=== PATIENT | male | born 1995 | race Caucasian/White ===

== ENCOUNTER 2018-08-21 09:03 | Emergency (ER) | payer OTHER ==
[2018-08-21] MEDS ORDERED: HYDROCODONE/APAP 7.5/325 MG TAB ONE (09:26)
--- NOTE | 2018-08-21 09:55 | RAD REPORT ---
EXAM DESCRIPTION: RAD - Hand Right 3 View - 08/21/2018 9:24 am CLINICAL HISTORY: Hand pain, blunt force trauma third and fourth digits COMPARISON: None. FINDINGS: No fracture is identified. There is no dislocation or periosteal reaction noted. Soft tis minoo injury seen over the dorsal margin of the distal third and fourth digits. No foreign body. IMPRESSION: Distal third and fourth digit soft tissue injury with no acute right hand bone or joint finding.
--- NOTE | 2018-08-21 10:29 | ER ---
Nurse's Notes [facility] Name: Deni Mi Age: 22 yrs Sex: Male : 1995 Arrival Date: 08/21/2018 Time: 09:04 Bed 7 Private MD: Diagnosis: Contusion of finger without damage to nail-3 \T\ 4 Presentation: 08/21 09:05 Presenting complaint: Patient states: right 2nd and 3rd digit got stuck in the metal sv door at the [facility] unit. Transition of care: patient was not received from another setting of care. Onset of symptoms was August 21, 2018. Risk Assessment: Do you want to hurt yourself or someone else? Patient reports no desire to harm self or others. Initial Sepsis Screen: Does the patient meet any 2 criteria? No. Patient's initial sepsis screen is negative. Does the patient have a suspected source of infection? No. Patient's initial sepsis screen is negative. Care prior to arrival: None. 09:05 Method Of Arrival: Law Enforcement: [place] [employer] sv 09:05 Acuity: CLARITZA 3 sv Triage Assessment: 09:07 General: Appears in no apparent distress. comfortable, Behavior is calm, cooperative, sv appropriate for age. Pain: Complains of pain in right hand Pain began 1 hour ago. Neuro: Level of Consciousness is awake, alert, obeys commands, Oriented to person, place, time, situation, Moves all extremities. Full function Gait is steady. Respiratory: Respiratory effort is even, unlabored, Respiratory pattern is regular, symmetrical. Derm: Skin is pink, warm \T\ dry. Musculoskeletal: Range of motion: intact in all extremities, Swelling present in right index finger and right middle finger. Historical: - Allergies: 09:06 No Known Allergies; iw - Home Meds: 09:06 None [Active]; iw - PMHx: 09:06 None; iw - PSHx: 09:06 Hernia repair; iw - Immunization history:: Last tetanus immunization: up to date. - Social history:: Smoking status: Patient/guardian denies using tobacco. - Ebola Screening: : Patient negative for fever greater than or equal to 101.5 degrees Fahrenheit, and additional compatible Ebola Virus Disease symptoms Patient denies exposure to infectious person Patient denies travel to an Ebola-affected area in the 21 days before illness onset No symptoms or risks identified at this time. Screenin:06 Abuse screen: Denies threats or abuse. Denies injuries from another. Nutritional sv screening: No deficits noted. Tuberculosis screening: No symptoms or risk factors identified. Fall Risk None identified. Assessment: 09:59 Reassessment: Patient appears in no apparent distress at this time. Patient and/or sv family updated on plan of care and expected duration. Pain level reassessed. Patient is alert, oriented x 3, equal unlabored respirations, skin warm/dry/pink. 10:07 Reassessment: right hand soaking in NS and iodine. sv 10:41 Reassessment: Patient appears in no apparent distress at this time. Patient and/or sv family updated on plan of care and expected duration. Pain level reassessed. Patient is alert, oriented x 3, equal unlabored respirations, skin warm/dry/pink. Vital Signs: 09:04 BP 131 / 78; Pulse 85; Resp 16; Temp 97.8; Pulse Ox 99% ; sv 09:59 BP 119 / 69; Pulse 79; Resp 16; Pulse Ox 99% ; sv ED Course: 09:04 Patient arrived in ED. sv 09:04 Chloe Santana, AGNES is Primary Nurse. sv 09:04 Glenroy Flanagan MD is Attending Physician. kdr 09:04 Arm band placed on Patient placed in an exam room, on a stretcher. sv 09:06 Triage completed. sv 09:06 Patient has correct armband on for positive identification. Bed in low position. nursing home sv guards at the bedside. 09:08 ED physician to see patient. sv 09:19 X-ray(s) taken. sv 09:20 X-ray completed. Portable x-ray completed in exam room. Patient tolerated procedure az well. 09:20 Hand Right 3 View XRAY In Process Unspecified. EDMS 10:29 Dressings: Band aid x 2 right index finger and right middle finger with triple sv antibiotic ointment. 10:30 No provider procedures requiring assistance completed. Patient did not have IV access sv during this emergency room visit. Administered Medications: 09:19 Drug: Parsons (7.5 mg-325 mg) 1 tabs Route: PO; sv 09:58 Follow up: Response: No adverse reaction sv Outcome: 10:29 Discharge ordered by . kdr 10:41 Discharged to [facility]. 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 medication usage, wound care, Demonstrated understanding of instructions, follow-up care, medications, wound care, Prescriptions given X 2. 10:42 Patient left the ED. sv Signatures: Dispatcher [employer] Chloe Thomas RN RN sv Rittger, Kevin, MD MD kdr Williams, Irene, RN RN iw Zavala, Araceli az
--- NOTE | 2018-08-21 10:29 | EDPHYS ---
Physician Documentation [facility] Name: Deni Mi Age: 22 yrs Sex: Male : 1995 Arrival Date: 08/21/2018 Time: 09:04 Bed 7 Private MD: ED Physician Glenroy Flanagan HPI: 08/21 09:09 This 22 yrs old Male presents to ER via Law Enforcement with complaints of kdr Hand Injury. 09:09 The patient or guardian reports decreased range of motion, injury, pain, tenderness. kdr The complaints affect the right middle finger, dorsal aspect of distal phalanx of right middle finger, right ring finger and right ring fingernail, DIP of right middle finger and DIP of right ring finger. Context: The problem was sustained at a [facility]. Onset: The symptoms/episode began/occurred acutely, just prior to arrival, .75 hour(s) ago. Modifying factors: The symptoms are alleviated by nothing, the symptoms are aggravated by movement. Associated signs and symptoms: The patient has no apparent associated signs or symptoms. Severity of symptoms: At their worst the symptoms were mild, in the emergency department the symptoms are unchanged. The patient has not experienced similar symptoms in the past. The patient has not recently seen a physician. Historical: - Allergies: 09:06 No Known Allergies; iw - Home Meds: 09:06 None [Active]; iw - PMHx: 09:06 None; iw - PSHx: 09:06 Hernia repair; iw - Immunization history:: Last tetanus immunization: up to date. - Social history:: Smoking status: Patient/guardian denies using tobacco. - Ebola Screening: : Patient negative for fever greater than or equal to 101.5 degrees Fahrenheit, and additional compatible Ebola Virus Disease symptoms Patient denies exposure to infectious person Patient denies travel to an Ebola-affected area in the 21 days before illness onset No symptoms or risks identified at this time. ROS: 09:09 Constitutional: Negative for fever, chills, and weight loss, Eyes: Negative for injury, kdr pain, redness, and discharge, Neck: Negative for injury, pain, and swelling, Cardiovascular: Negative for chest pain, palpitations, and edema, Respiratory: Negative for shortness of breath, cough, wheezing, and pleuritic chest pain, Abdomen/GI: Negative for abdominal pain, nausea, vomiting, diarrhea, and constipation. 09:09 MS/extremity: Positive for abrasion, contusion, decreased range of motion, pain, swelling, tenderness, of the right middle finger, dorsal aspect of distal phalanx of right middle finger, right ring finger and dorsal aspect of distal phalanx of right ring finger. Exam: 09:09 Constitutional: This is a well developed, well nourished patient who is awake, alert, kdr and in no acute distress. Head/Face: Normocephalic, atraumatic. Chest/axilla: Normal chest wall appearance and motion. Nontender with no deformity. No lesions are appreciated. Cardiovascular: Regular rate and rhythm with a normal S1 and S2. No gallops, murmurs, or rubs. Normal PMI, no JVD. No pulse deficits. Abdomen/GI: Soft, non-tender, with normal bowel sounds. No distension or tympany. No guarding or rebound. No evidence of tenderness throughout. 09:09 Musculoskeletal/extremity: Extremities: grossly normal except: abrasion, contusion, decreased ROM, deformity, laceration, pain, swelling, tenderness. Vital Signs: 09:04 BP 131 / 78; Pulse 85; Resp 16; Temp 97.8; Pulse Ox 99% ; sv 09:59 BP 119 / 69; Pulse 79; Resp 16; Pulse Ox 99% ; sv MDM: 09:09 Data reviewed: vital signs, nurses notes. Counseling: I had a detailed discussion with kdr the patient and/or guardian regarding: the historical points, exam findings, and any diagnostic results supporting the discharge/admit diagnosis, radiology results, the need for outpatient follow up. 10:29 Patient medically screened. kdr 08/21 09:08 Order name: Hand Right 3 View XRAY; Complete Time: 09:59 kdr 08/21 09:11 Order name: Misc. Order: Need handcuffs removed to do an xray.; Complete Time: 09:17 sv Administered Medications: 09:19 Drug: Cerrillos (7.5 mg-325 mg) 1 tabs Route: PO; sv 09:58 Follow up: Response: No adverse reaction sv Disposition: 08/21/18 10:29 Discharged to Home. Impression: Contusion of finger without damage to nail - 3 \T\ 4 . - Condition is Stable. - Discharge Instructions: Abrasion, [id number]. - Prescriptions for Keflex 500 mg Oral Capsule - take 1 capsule by ORAL route every 6 hours for 3 days; 12 capsule. Tramadol 50 mg Oral Tablet - take 1 tablet by ORAL route every 8 hours as needed; 12 tablet. - Medication Reconciliation Form, Thank You Letter, Antibiotic Education, Prescription Opioid Use form. - Follow up: Private Physician; When: 2 - 3 days; Reason: If symptoms return, Further diagnostic work-up, Recheck today's complaints, Continuance of care, Re-evaluation by your physician. - Problem is new. - Symptoms have improved. - Notes: Clean and apply triple antibiotic ointment daily to right 3rd and4th digits and apply bandaid. Signatures: Dispatcher [employer] EDChloe Villa, RN RN Glenroy King MD MD kdr Williams, Irene, RN RN iw Corrections: (The following items were deleted from the chart) 10:42 10:29 08/21/2018 10:29 Discharged to Home. Impression: Contusion of finger without sv damage to nail - 3 \T\ 4 . Condition is Stable. Forms are Medication Reconciliation Form, Thank You Letter, Antibiotic Education, Prescription Opioid Use. Follow up: Private Physician; When: 2 - 3 days; Reason: If symptoms return, Further diagnostic work-up, Recheck today's complaints, Continuance of care, Re-evaluation by your physician. Problem is new. Symptoms have improved. kdr
== END 2018-08-21 10:42 | disposition home or self-care (01) ==
LOC: ER 09:03
DX: S60.041A Contusion of right ring finger without damage to nail, initial encounter (principal); S60.031A Contusion of right middle finger without damage to nail, initial encounter; W23.0XXA Caught, crushed, jammed, or pinched between moving objects, initial encounter; Y92.149 Unspecified place in prison as the place of occurrence of the external cause
CPT/HCPCS: 99283